=== PATIENT | female | born 1970 | race Hispanic/Latino ===

== ENCOUNTER 2019-12-30 18:47 | Emergency (ER) | payer SELFPAY ==
--- NOTE | 2019-12-30 21:35 | RAD ---
PORTABLE CHEST: History: Chest pain FINDINGS: Lung holly are clear. Heart and mediastinum appear normal. IMPRESSION: Negative portable chest. POS: [id number]
== END 2019-12-30 22:40 | disposition home or self-care (01) ==
LOC: ERS 18:47
DX: F41.1 Generalized anxiety disorder (principal); R07.89 Other chest pain; E11.9 Type 2 diabetes mellitus without complications
CPT/HCPCS: 71045; 93005; 94760